=== PATIENT | male | born 1960 | race Caucasian/White ===

== ENCOUNTER 2017-04-12 22:22 | Emergency (ER) | payer MEDICARE ==
[~2017-04-12 22:22] MED LIST: DIVALPROEX SOD500 M3 PO; FIORICE1 PO; Levaquin PO; MEDDOSEPAK PO; METOPROLOL SUCC50 MG PO; PERCOCET 10/31 COMBO PO; PREDNISONE20 MG PO; PROVENTIL HFA IN; RESTORIL30 MG PO; UNABLE TO OBTAIN; XANAX2 MG PO; ZPAK PO; ZYPREXA PO
[2017-04-12] MEDS ORDERED: ADVAIR DISK1 INH (22:57)
[2017-04-12] MEDS ORDERED: COMBIVENT RESPIMAT IN (22:57)
[2017-04-12 23:03] LABS: HEMOGLOBIN 13.2 g/dl (14.0-18.0); MEAN CELL VOLUME 98.1 fL CALC (80.0-100.0); MEAN CORPUSCULAR HGB 30.8 pG CALC (26.0-32.0); MEAN CORPUSCULAR HGB CONC 31.4 g/L CALC (32.0-36.0); NEUT# 10.5 thou/uL (1.82-7.42); RED BLOOD COUNT 4.28 mill/uL (4.70-6.10); RED CELL DISTRI WIDTH 12.3 % (11.5-15.5)
[2017-04-12 23:11] LABS: ALKALINE PHOSPHATASE 59 u/l (38-126); ANION GAP 23 (6-22 (CALC)); BILIRUBIN, TOTAL 0.9 mg/dL (0.0-1.4); BUN 4 mg/dL (9-20); BUN/CREATININE RATIO 4 (12-20 (CALC)); CALCIUM 7.7 mg/dL (8.4-10.2); CARBON DIOXIDE 19 mmol/l (22-30); CHLORIDE 101 mmol/l (95-108); GFR > 60 ML/MIN (>=60 (CALC)); GFR FOR AFR.AMER. > 60 ML/MIN (>=60 (CALC)); GLUCOSE 275 mg/dL (75-110); POTASSIUM 4.9 mmol/l (3.5-5.1); SGOT/AST 44 u/l (17-59); SGPT/ALT 25 u/l (21-72); SODIUM 138 mmol/l (137-146); TOTAL PROTEIN 6.7 g/dL (6.3-8.2)
[2017-04-12 23:27] LABS: URINE BILIRUBIN - DIPSTICK NEGATIVE (NEGATIVE); URINE BLOOD DIPSTICK MODERATE (NEGATIVE); URINE CLARITY CLOUDY; URINE COLOR YELLOW; URINE GLUCOSE - DIPSTICK 100 mg/dL (NEGATIVE); URINE KETONE NEGATIVE (NEGATIVE); URINE LEUK ESTERASE NEGATIVE (NEGATIVE); URINE NITRITE - DIPSTICK NEGATIVE (Negative); URINE PROTEIN - DIPSTICK 100 mg/dL (NEG-TRACE); URINE UROBILINOGEN - DIPSTICK 0.2 E.U./dL (0.2)
[2017-04-12 23:27] LABS: MYOGLOBIN 660 ng/mL (0 - 121)
[2017-04-12 23:30] LABS: URINE BACTERIA FEW hpf; URINE MUCUS FEW hpf (NONE-FEW); URINE SQUAMOUS EPITHELIAL CELL MODERATE EPI/hpf (0-FEW)
[2017-04-13 00:15] VITALS: BP 126/81
== END 2017-04-13 00:40 | disposition short-term general hospital (02) ==
LOC: ED 22:22
PROC: 0T9B70Z Drainage of Bladder with Drainage Device, Via Natural or Artificial Opening (ICD-10-PCS; principal; 2017-04-12)
PROC: 0D9670Z Drainage of Stomach with Drainage Device, Via Natural or Artificial Opening (ICD-10-PCS; 2017-04-12)
DX: I46.9 Cardiac arrest, cause unspecified (principal)